=== PATIENT | male | born 1965 | race Caucasian/White ===

== ENCOUNTER → 2016-09-30 | Outpatient (CLI) | payer OTHER | END | disposition home or self-care (01) | LOC: CDC 14:07 | DX: Z01.810 Encounter for preprocedural cardiovascular examination (principal); M25.512 Pain in left shoulder; M75.121 Complete rotator cuff tear or rupture of right shoulder, not specified as traumatic; M75.42 Impingement syndrome of left shoulder | CPT/HCPCS: 93000 ==

== ENCOUNTER 2016-10-28 13:02 | Emergency (ER) | payer OTHER ==
[~2016-10-28] VITALS: Ht 180.3 cm; Wt 96.4 kg
[2016-10-28 14:10] LABS: HEMATOCRIT 42.9 % (38.0-50.0); MCH 26.4 PG (29.0-34.0); MCHC 34.3 G/DL (30.0-36.0); MEAN PLAT.VOLUME 9.5 uM^3 (9.0-12.4); PLATELET COUNT 270 K/uL (156-360); RBC DIS.WIDTH-CV 14.5 % (11.8-14.6); RBC DIS.WIDTH-SD 39.9 % (39-53); RED BLOOD COUNT 5.57 M/uL (4.00-5.50); WHITE BLOOD COUNT 15.4 K/uL (4.1-10.2)
[2016-10-28 14:20] LABS: CHLORIDE 104 mEq/L (99-109); POTASSIUM 5.1 mEq/L (3.7-5.4); SODIUM 138 mEq/L (136-147)
[2016-10-28 14:22] LABS: GLUCOSE 159 mg/dL (70-99)
[2016-10-28 14:23] LABS: ANION GAP 12 MEQ/L (2-14)
[2016-10-28 14:26] LABS: GFR ESTIMATE (CALCULATED) > 59 mL/min/; UREA NITROGEN (BUN) 13 mg/dL (9-23)
[2016-10-28 14:35] LABS: TROP-I INTERPRETATION NEGATIVE; TROPONIN-I < 0.01 ng/mL (0.0-0.30)
[2016-10-28] MEDS ORDERED: ZOFRAN4 MG PO (14:53)
[2016-10-28] MEDS ORDERED: METFORMIN HCL850 MG PO (15:15)
[2016-10-28] MEDS ORDERED: LISINOPRIL5 MG PO (15:15)
[2016-10-28] MEDS ORDERED: SIMVASTATIN20 MG PO (15:15)
[2016-10-28] MEDS ORDERED: JANUVIA100 MG PO (15:16)
[2016-10-28] MEDS ORDERED: TOPROL XL50 MG PO (15:16)
[2016-10-28] MEDS ORDERED: TRAMADOL HCL100 MG PO (15:16)
[2016-10-28] MEDS ORDERED: ENDOCET 5-3251 EACH PO (15:17)
[2016-10-28 15:23] VITALS: BP 132/89
== END 2016-10-28 15:26 | disposition home or self-care (01) ==
LOC: EME 13:02
PROVIDERS: Emergency Medicine
DX: R42 Dizziness and giddiness (principal); E78.5 Hyperlipidemia, unspecified; E11.9 Type 2 diabetes mellitus without complications; I10 Essential (primary) hypertension
CPT/HCPCS: 80048; 84484; 85027; 93005; 99281; 99285; J2405; J7030